=== PATIENT | female | born 1955 ===

== ENCOUNTER 2020-09-05 07:33 | Day surgery (SDC) | payer OTHER ==
[~2020-09-05 07:33] MED LIST: Lactated Ringers 1,000 ML IV SCH
[2020-09-05] MEDS ORDERED: ceFAZolin 1 GM Vial IM ONE (08:29)
[2020-09-05] MEDS ORDERED: ceFAZolin 2 GM in Premix Bag 1 BAG IV ONE (08:45)
[2020-09-05] MEDS ORDERED: Midazolam 1 MG/ML 2 ML SDV IV ONE (09:00)
[2020-09-05] MEDS ORDERED: Ondansetron 4 MG/2 ML SDV IV ONE (09:00)
[2020-09-05] MEDS ORDERED: Lidocaine 2% 20 ML MDV ONE (09:00)
[2020-09-05] MEDS ORDERED: Rocuronium 100 MG/10 ML MDV IV ONE (09:00)
[2020-09-05] MEDS ORDERED: Neostigmine Methylsulfate 10 MG/10 ML MDV IV ONE (09:00)
[2020-09-05] MEDS ORDERED: Ketorolac 30 MG/ML SDV IVPUSH ONE (09:00)
[2020-09-05] MEDS ORDERED: ePHEDrine 50 MG/ML SDV IV ONE (09:00)
[2020-09-05] MEDS ORDERED: Glycopyrrolate 0.2 MG/ML 2 ML SDV IV ONE (09:00)
[2020-09-05] MEDS ORDERED: Dexamethasone 4 MG/ML SDV IV ONE (09:00)
[2020-09-05] MEDS ORDERED: Propofol 200 MG/20 ML SDV IV ONE (09:00)
[2020-09-05] MEDS ORDERED: fentaNYL 250 MCG/5 ML SDV IV ONE (09:00)
[2020-09-05] MEDS ORDERED: Ondansetron 4 MG/2 ML SDV IVPUSH PRN (10:34)
[2020-09-05] MEDS ORDERED: Sodium Chloride 0.9% 10 ML Syringe FLUSH PRN (10:37)
[2020-09-05] MEDS: Acetaminophen/oxyCODONE 325-5 MG Tab PO PRN ×3 (11:34→22:37)
[2020-09-05] MEDS: Morphine 2 MG/ML SYRINGE IVPUSH PRN ×2 (14:42→19:52)
[2020-09-05] MEDS ORDERED: Benzocaine/Cetylpyridinium/Menthol Lozenge MUCMEM PRN (19:31)
--- NOTE | 2020-09-06 14:39 | PCM.SN.2 ---
- Free Text/Narrative Note: Stable POD#1. Pain controlled. PO tolerated. Wounds clean and dry. Can discharge today. No restrictions. FU my clinic if needed. Percocet #10 given for pain.
--- NOTE | 2020-09-06 16:17 | OR ---
DATE: 09/05/2020 PREOPERATIVE DIAGNOSIS: Chronic cholecystitis, cholelithiasis. POSTOPERATIVE DIAGNOSIS: Chronic cholecystitis, cholelithiasis. PROCEDURE: Laparoscopic cholecystectomy. ANESTHESIA: General. ESTIMATED BLOOD LOSS: Minimal. SPECIMEN: Gallbladder and stones. INDICATION FOR PROCEDURE: This 65-year-old female has multiple stones seen on ultrasound of the gallbladder and significant right upper quadrant abdominal pain. DESCRIPTION OF PROCEDURE: After adequate preparation, a Veress needle was placed infraumbilically and then a 5 mm trocar was inserted there. The abdomen was insufflated. This was then exchanged for the camera. Three other trocars were placed in the right upper quadrant under direct vision. Examination of the gallbladder showed multiple adhesions of the omentum around the gallbladder. These were taken down by sharp and blunt dissection. The cystic triangle structures of the gallbladder were separately identified. These were triply clipped and divided. The gallbladder was then taken off the liver bed using blunt and cautery dissection. There was no spillage of bile. Hemostasis was controlled with cautery. The gallbladder was then placed within a sterile retrieval bag and brought out through the epigastric trocar site. The abdomen was then desufflated. The epigastric trocar site fascia was closed with 0 Vicryl suture. The skin was closed with Monocryl. The gallbladder was opened on the back table and showed multiple large stones within the gallbladder. [facility] /[id number]
== END 2020-09-06 10:25 | disposition home or self-care (01) ==
LOC: DL.SDS 07:33 → EDSTATUS 09:00 → DL.MS 10:34 → DL.SDS 09-06 10:25
PROVIDERS: ATTEND Surgery
DX: K80.10 Calculus of gallbladder with chronic cholecystitis without obstruction (principal); E11.9 Type 2 diabetes mellitus without complications; I10 Essential (primary) hypertension; E66.9 Obesity, unspecified; Z87.891 Personal history of nicotine dependence; Z79.899 Other long term (current) drug therapy; Z68.38 Body mass index [BMI] 38.0-38.9, adult
CPT/HCPCS: 00790; 47562; A9270; J0690; J1100; J1885; J2250; J2270; J2405; J2704; J2710; J3010; J3490; J7120